=== PATIENT | female | born 1965 | race Caucasian/White ===

== ENCOUNTER 2019-06-29 06:18 | Day surgery (SDC) | payer OTHER ==
[2019-06-29] MEDS ORDERED: FENTAnyl 50 MCG/ML VIAL (07:35)
[2019-06-29 07:54] LABS: ANION GAP 8 (5-13); BLOOD UREA NITROGEN 13 mg/dl (7-20); CALCIUM 9.4 mg/dl (8.4-10.2); CARBON DIOXIDE 24 mmol/L (21-31); CHLORIDE 108 mmol/L (97-110); CREATININE 0.55 mg/dl (0.44-1.00); Estimated GFR > 60 mL/min (>60); GLUCOSE 91 mg/dl (70-220); SODIUM 140 mmol/L (135-144)
[2019-06-29] MEDS: LIDOCAINE 1% (MPF) 30 ML INJ (08:39)
[2019-06-29] MEDS: BUPIVACAINE 0.25% (MPF) 30 ML INJ (08:39)
[2019-06-29] MEDS ORDERED: LIDOCAINE 2% (SDV) 5 ML INJ (08:40)
[2019-06-29] MEDS ORDERED: BACITRACIN 0.9 GM OINT (08:40)
[2019-06-29] MEDS ORDERED: PROPOFOL 60 ML (08:40)
[2019-06-29] MEDS: BACITRACIN/POLYMYXIN 28.35 GM OINT TOP (08:52)
[2019-06-29] MEDS: CEFAZOLIN 2 GM/50 ML (PMX) 50 ML IVPB (09:22)
[2019-06-29] MEDS ORDERED: OXYCODONE/ACETAMINOPHEN (5/325) TAB PO ×2 (09:30)
[2019-06-29] MEDS ORDERED: ONDANSETRON 4 MG INJ IV (09:30)
[2019-06-29] MEDS ORDERED: FENTAnyl 50 MCG/ML VIAL IV ×2 (09:30)
[2019-06-29] MEDS ORDERED: LABETALOL HCL 20MG INJ IV (09:30)
== END 2019-06-29 10:08 | disposition home or self-care (01) ==
LOC: SDS 06:18
DX: G56.01 Carpal tunnel syndrome, right upper limb (principal); M65.311 Trigger thumb, right thumb; E66.9 Obesity, unspecified
CPT/HCPCS: 26055; 80048